=== PATIENT | male | born 1985 | race Caucasian/White ===

== ENCOUNTER 2017-08-13 08:47 | Outpatient (CLI) | payer OTHER ==
--- NOTE | 2017-08-13 10:35 | RAD ---
CERVICAL SPINE FOUR VIEWS: History: Palpable lump back of neck x 1 month. FINDINGS: A soft tissue marker was placed posteriorly at the C7 level. Cervical vertebrae maintain normal height and alignment. Posterior elements are normally aligned. Dis c spaces are preserved. On the lateral view there is some fat density in the subcutaneous region at the site of the marker wh ich could potentially represent a subcutaneous lipoma. This could be confirmed with soft tissue CT or MRI if indicated. IMPRESSION: 1. Unremarkable cervical spine. POS: [facility]
== END 2017-08-13 08:48 | disposition home or self-care (01) ==
LOC: MADRAD 08:47
PROVIDERS: ATTEND Family Medicine
DX: R22.1 Localized swelling, mass and lump, neck (principal)
CPT/HCPCS: 72040